=== PATIENT | female | born 1990 ===

== ENCOUNTER 2022-06-03 12:35 | Emergency (ER) | payer BC, SELFPAY ==
[2022-06-03 12:42] VITALS: BP 114/63; PULSE 92; RESP 16; TEMP 36.6; O2SAT 99
--- NOTE | 2022-06-03 13:30 | ED.URI ---
HPI - URI/Sore Throat General Chief Complaint: Upper Respiratory Infection Stated Complaint: Sinus Pressure Time Seen by Provider: 06/03/22 13:25 Source: patient, RN notes reviewed and old records reviewed Mode of arrival: ambulatory Limitations: no limitations History of Present Illness HPI Narrative: 31-year-old female presents to [facility] with complaints of 4 day history of sinus congestion and drainage facial pressure and her lymph nodes are swollen in her neck. Patient reports that she also has some right ear discomfort and has felt feverish Patient reports that she has been taking some DayQuil and NyQuil for her symptoms and Mucinex without resolution. Patient states that she did home covid test which was negative has not had COVID or Flu shot. MD elicited complaint: rhinorrhea and nasal congestion Pertinent past history: immunosuppression Onset (ago): day(s) (4) Pain scale (0-10): 5 Treatments prior to arrival: cold medicine and other (Mucinex) Related Data Home Medications Medication Instructions Recorded Confirmed adalimumab 40 mg/0.4 mL See Rx Instructions .Route .COMPLEX 06/03/22 06/08/22 subcutaneous pen kit (Humira(CF) Pen) clonazepam 0.5 mg tablet 0.5 mg PO BID 06/03/22 06/08/22 diclofenac sodium 75 mg 75 mg PO BID 06/03/22 06/08/22 tablet,delayed release hydroxychloroquine 200 mg tablet 200 mg PO DAILY 06/03/22 06/08/22 ondansetron HCl 4 mg tablet See Rx Instructions .Route .COMPLEX 06/03/22 06/08/22 quetiapine 25 mg tablet 25 mg PO BID 06/03/22 06/08/22 Allergies Allergy/AdvReac Type Severity Reaction Status Date / Time latex Allergy Unknown Verified 10/24/16 09:32 Review of Systems Review of Systems: CONSTITUTIONAL: Reports malaise, chills, sweats, or fever. EYES: Denies visual changes, redness, or discharge. ENT: Reports rhinorrhea, congestion, sinus pain, right otalgia no acute sore throat but lymph nodes swollen neck. CARDIOVASCULAR: Denies chest pain, palpitations, or edema. RESPIRATORY: Denies acute cough.? Denies dyspnea. GASTROINTESTINAL: Denies abdominal pain, nausea, vomiting, diarrhea SKIN: Denies rash or itching. MUSCULOSKELETAL: Denies myalgia. NEUROLOGIC:Reports headache. All systems reviewed & are unremarkable except as noted in HPI and below PMFSH Past Medical History Medical History (Updated 06/10/22 @ 19:34 by Krista Cohen NP) H/O Sjogren's disease Family History Family History (Updated 08/29/16 @ 14:17 by DOCTOR UNKNOWN) Mother Family history of multiple sclerosis Father Hypertension Social History Social History Smoking status: Never smoker Alcohol intake: never Comments At time of signature, agree with nursing past medical, surgical, social and family history. There is no relevant family history pertinent to the presenting complaint Exam Narrative: GENERAL: Well-appearing, well-nourished, and in no acute distress. HEAD: Normocephalic EYES: PERRLA, conjunctivae clear ENT: Nares clear, turbinates edematous and erythematous, clear discharge. Mucous membranes moist.facial pressure and headache. TM pearly glynn with dull light reflex bilaterally; no tragal tenderness. Oropharynx erythematous without lesions. Tonsils not enlarged and without exudate, no drooling, no hoarseness, no trismus, uvula midline.post nasal drainage NECK: Supple. lymphadenopathy CHEST: Clear to auscultation, breath sounds equal. No wheezing, rhonchi, rales, or stridor. No respiratory distress, speaks in full sentences.SAO2 99% on room air HEART: Regular rate and rhythm. No murmur heard. SKIN: Warm, dry, no rash. NEURO: Alert and oriented x3. PSYCH: Normal mood and affect Course Course Emergency Course: Patient is aware of diagnosis, understands and agrees to treatment plan.? Anticipatory guidance given.? Patient agrees to follow-up as directed and is aware of reasons to seek care at the emergency department. Portions of this rec
== END 2022-06-03 13:45 | disposition home or self-care (01) ==
PROVIDERS: Emergency Provider Registered Nurse; PCP Family Medicine
DX: J32.9 Chronic sinusitis, unspecified (principal); M35.00 Sjogren syndrome, unspecified
CPT/HCPCS: 87804; 99203; G0463